=== PATIENT | male | born 1960 | race Caucasian/White ===

== ENCOUNTER 2018-03-27 19:39 | Outpatient (CLI) | payer MEDICARE | END 2018-03-27 19:40 | disposition critical access hospital (66) | LOC: EMS 19:39 | PROVIDERS: ATTEND Surgery | DX: S01.01XA Laceration without foreign body of scalp, initial encounter (principal); Z72.89 Other problems related to lifestyle; W01.0XXA Fall on same level from slipping, tripping and stumbling without subsequent striking against object, initial encounter; Y93.01 Activity, walking, marching and hiking; Y92.413 State road as the place of occurrence of the external cause | CPT/HCPCS: A0425; A0429 ==

== ENCOUNTER 2018-03-27 19:58 | Emergency (ER) | payer MEDICARE ==
--- NOTE | 2018-03-27 21:50 | CT Report ---
EXAM: CT HEAD EXAM DATE: 03/27/2018 09:15 PM. CLINICAL HISTORY: Fall, etoh, facial trauma. COMPARISON: 08/26/2010. TECHNIQUE: Multiaxial CT images were obtained from the foramen magnum to the vertex. Reformats: Coron al. IV contrast: None. In accordance with CT protocol optimization, one or more of the following dose reduction techniques w ere utilized for this exam: automated exposure control, adjustment of mA and/or KV based on patient s ize, or use of iterative reconstructive technique. FINDINGS: Parenchyma: No intraparenchymal hemorrhage. No evidence of mass, midline shift, or CT findings of inf arction. Old right lacunar infarction. Chao-white differentiation is distinct. Extraaxial Spaces: Normal for age. No subdural or epidural collections. Ventricles: Mildly prominent lateral ventricles, right more than left. Sinuses and Orbits: Small maxillary sinuses with almost complete opacification of right maxillary sin us. Hypoplastic frontal sinuses. Other sinuses appear clear. Bones: Unremarkable. Other: None. IMPRESSION: 1. Old right lacunar infarction and other chronic findings, but no definite acute intracranial diseas e. 2. Right maxillary sinusitis. [facility] Referring Provider Line: [phone] SITE ID: [id number]
--- NOTE | 2018-03-27 21:50 | CT Preliminary Report ---
Exam: CT HEAD W/O IMPRESSION: 1. Old right lacunar infarction and other chronic findings, but no definite acute intracranial diseas e. 2. Right maxillary sinusitis. [facility] SITE ID: [id number]
--- NOTE | 2018-03-27 21:54 | CT Preliminary Report ---
Exam: CT FACIAL BONES W/O IMPRESSION: 1. No acute facial fracture. 2. Right maxillary sinus inflammatory disease. 3. Soft tissue swelling of the chin. [facility] SITE ID: [id number]
--- NOTE | 2018-03-27 21:54 | CT Report ---
EXAM: CT MAXILLOFACIAL WITHOUT CONTRAST EXAM DATE: 03/27/2018 09:41 PM. CLINICAL HISTORY: Fall, etoh, facial trauma. COMPARISONS: Head CT 08/26/2010. TECHNIQUE: Thin-section axial images were acquired of the face without contrast. Post-processing: Cor onal and sagittal reformats. Other: None. In accordance with CT protocol optimization, one or more of the following dose reduction techniques w ere utilized for this exam: automated exposure control, adjustment of mA and/or KV based on patient s ize, or use of iterative reconstructive technique. FINDINGS: Soft Tissue: No facial hematoma or subcutaneous fluid collection. There is soft tissue edema or contu vanesa of the subcutaneous tissue of the chin. Orbits: Both orbits appear symmetric. No posterior orbital hematoma or mass. Bones: No acute facial fracture is identified. Temporomandibular Joints: Temporal mandibular joints appear in satisfactory alignment. No mandible or maxillary fracture. Sinuses: There is near complete opacification of the right maxillary sinus. There is mucosal thickeni ng at the infundibulum with obstruction of the ostiomeatal complex. The frontal sinuses are hypoplast ic. The other paranasal sinuses appear clear. Other: None. IMPRESSION: 1. No acute facial fracture. 2. Right maxillary sinus inflammatory disease. 3. Soft tissue swelling of the chin. [facility] Referring Provider Line: [phone] SITE ID: [id number]
--- NOTE | 2018-03-27 22:00 | CT Report ---
EXAM: CT CERVICAL SPINE WITHOUT CONTRAST DATE: 03/27/2018 09:41 PM. HISTORY: Fall, etoh, facial trauma. COMPARISONS: None. TECHNIQUE: Thin-section axial images were acquired of the cervical spine without contrast. Post-proce ssing: Coronal and sagittal reformats. Other: None. In accordance with CT protocol optimization, one or more of the following dose reduction techniques w ere utilized for this exam: automated exposure control, adjustment of mA and/or KV based on patient s ize, or use of iterative reconstructive technique. FINDINGS: Alignment: There is straightening of normal cervical lordosis. There is 1-2 mm of anterolisthesis at C2-C3. Alignment at other levels appears satisfactory. Bones: Negative for fracture. No destructive bony abnormality. Interspace Levels/Facets: There is mild to moderate disk height loss with disk endplate degenerative disease and spurring which is greatest at C6-C7. There is multilevel facet joint space narrowing and spurring. There is mild de generative disk disease at levels from C3-C6. No focal central spinal canal stenosis. Musculature: Normal. No fatty atrophy. Other: Paravertebral soft tissues are unremarkable. No apical pneumothorax. IMPRESSION: 1. Rgql-[id number] multilevel degenerative disk and facet disease. Negative for an acute fracture or subluxation of the cervical spine. [facility] Referring Provider Line: [phone] SITE ID: [id number]
--- NOTE | 2018-03-27 22:00 | CT Preliminary Report ---
Exam: CT CERVICAL SPINE W/O IMPRESSION: 1. [id number]-[id number] multilevel degenerative disk and facet disease. Negative for an acute fracture or subluxation of the cervical spine. [facility] SITE ID: [id number]
--- NOTE | 2018-03-27 22:04 | ED Physician Documentation ---
PD HPI HEAD INJURY - Stated complaint Stated Complaint: ETOH,FELL, CHIN LAC - Chief complaint Chief Complaint: Laceration - History obtained from History obtained from: Patient, EMS - History of Present Illness Mechanism of head injury: Fell Where head injury occurred: Street Timing - onset: Today Associated symptoms: LOC Contributing factors: Intoxicated Similar symptoms before: Has not had sx before Recently seen: Not recently seen - Additional information Additional information: Patient is a 57 year male who is presenting to the emergency department after falling secondary to intoxication. patient admitting to drinking an unknown number of [place] drinks causing him to black out and fall forward cutting his chin. Review of Systems Unable to obtain: Intoxicated PD PAST MEDICAL HISTORY - Past Medical History Cardiovascular: None Respiratory: None Neuro: None Endocrine/Autoimmune: None GI: None : None HEENT: None Psych: None Musculoskeletal: None Derm: None - Past Surgical History Past Surgical History: Yes - Allergies Allergies/Adverse Reactions: Allergies Allergy/AdvReac Type Severity Reaction Status Date / Time No Known Drug Allergies Allergy Verified 03/27/18 20:07 - Social History Does the pt smoke?: Yes Smoking Status: Current every day smoker Does the pt drink ETOH?: Yes ETOH Use: Wine, Liquor Does the pt have substance abuse?: Yes Substance Use and Type: Marijuana - Immunizations Immunizations are current?: No Immunizations: TDAP >10years/unknown - POLST Patient has POLST: No PD ED PE NORMAL - Vitals Vital signs reviewed: Yes - Neck Neck: No bony TTP - Cardiac Cardiac: RRR - Respiratory Respiratory: No respiratory distress - Abdomen Abdomen: Non distended PD ED PE EXPANDED - HEENT HEENT: Head injury (2cm laceration of chin) - Derm Derm: Other (psoriasis bilateral upper extremities) - GCS Eye Opening: To Voice Motor: Obeys Commands Verbal: Oriented Total: 14 - Psych Psych: Intoxicated / AOB Results - Vitals Vitals: Vital Signs - 24 hr 03/27/18 03/27/18 20:00 22:24 Temperature 36.6 C Heart Rate 79 96 Respiratory 19 19 Rate Blood Pressure 103/77 112/81 H O2 Saturation 100 100 Oxygen O2 Source Room air - Rads (name of study) ct head, cervical spine, facial bones Radiology: Final report received (no acute fracture, dislocation or intracranial hemorrhage ), See rad report Procedures - Laceration (location) chin Length in cm: 2 Wound type: Irregular Neurovascular status: Sensory intact, Vascular intact Wound Preparation: Chlorhexadine, Irrigated copiously NS Skin layer closure: Dermabond Other: No complications, Tetanus UTD Complexity: Simple PD MEDICAL DECISION MAKING - ED course Complexity details: reviewed old records, reviewed results, re-evaluated patient , considered differential, d/w patient ED course: patient was seen and examined at bedside. patient was sent for imaging. When patient returned his laceration was cleaned and repaired. Patient's imaging showed no acute abnormalities. patient was observed for sobriety. Upon discharge patient was able to attend to conversation and ambulate without difficulty. patient required no further inpatient work up and was stable for discharge with outpatient follow up. Departure - Departure Disposition: 01 Home, Self Care Clinical Impression: Laceration, Alcohol intoxication Condition: Good Instructions: ED Laceration Facial Skin Glue Follow-Up: primary,care provider [Other] - As Needed Comments: Your diagnostics today were within normal limits. there were no acute findings. You did suffer a laceration on the bottom of your chin that was repaired with glue. You should keep the area clean and dry. You should refrain from drinking excessively as it contributed to your fall. Discharge Date/Time: 03/27/18 22:30
[2018-03-27 22:29] VITALS: BP 112/81
== END 2018-03-27 22:30 | disposition home or self-care (01) ==
LOC: EDUNIT# → ED 19:58
DX: S01.81XA Laceration without foreign body of other part of head, initial encounter (principal); W18.30XA Fall on same level, unspecified, initial encounter; Y92.410 Unspecified street and highway as the place of occurrence of the external cause; F17.200 Nicotine dependence, unspecified, uncomplicated
CPT/HCPCS: 12011; 70450; 70486; 72125; 99283

== ENCOUNTER 2019-12-10 10:16 | Outpatient (CLI) | payer MEDICARE ==
--- NOTE | 2019-12-10 17:06 | XRAY Report ---
Reason: RIGHT SHOULDER PAIN Procedure Date: 12/10/2019 Accession Number: [id number] / [id number] Procedure: WCP - Shoulder 2 View RT CPT Code: Final Report FULL RESULT: EXAM: RIGHT SHOULDER RADIOGRAPHY EXAM DATE: 12/10/2019 12:16 PM. CLINICAL HISTORY: Right shoulder pain, post trauma. COMPARISON: None. TECHNIQUE: 3 views. FINDINGS: Bones: No fracture or bone lesion. Joints: Minimal early degenerative changes at the glenohumeral and acromioclavicular joints. Soft tissues: The visualized hemithorax is unremarkable. No soft tissue swelling. No pneumothorax in the right lung apex. IMPRESSION: No acute process. Minimal degenerative change. [facility]
== END 2019-12-10 23:59 | disposition home or self-care (01) ==
LOC: DI.WCP 10:16
PROVIDERS: ATTEND Family Medicine
DX: M19.011 Primary osteoarthritis, right shoulder (principal)

== ENCOUNTER 2020-06-24 08:00 | Outpatient (CLI) | payer MEDICARE ==
[2020-06-24 11:33] LABS: BASOPHILS % (AUTO) 0.5 %; HGB - HEMOGLOBIN 15.3 g/dL (14.0-18.0); LYMPHOCYTES % (AUTO) 20.4 %; MEAN CORPUSCULAR HGB CONC 33.8 g/dL (32.0-36.0); MEAN CORPUSCULAR VOLUME 109.7 fL (80.0-94.0); MEAN PLATELET VOLUME 11.6 fL (7.4-11.4); MONOCYTES % (AUTO) 6.6 %; NEUTROPHILS % (AUTO) 37.3 %; PLT - PLATELET COUNT 142 10^3/uL (130-450); RED BLOOD COUNT 4.13 10^6/uL (4.70-6.10); RED CELL DISTRIBUTION WIDTH 14.1 % (12.0-15.0); WHITE BLOOD COUNT 6.3 x10^3/uL (4.8-10.8)
[2020-06-24 12:11] LABS: ABNORMAL LYMPHS % (MANUAL) 0 %; BAND NEUTROPHILS % (MANUAL) 0 %
[2020-06-24 12:24] LABS: ALBUMIN 3.8 g/dL (3.2-5.5); ALBUMIN/GLOBULIN RATIO 1.1 (1.0-2.2); ALKALINE PHOSPHATASE 69 IU/L (42-121); ALT ALANINE AMINOTRANSFERASE 34 IU/L (10-60); AST ASPARTATE AMINOTRANSFERASE 37 IU/L (10-42); BILIRUBIN,TOTAL 0.8 mg/dL (0.2-1.0); BUN - BLOOD UREA NITROGEN 22 mg/dL (6-20); CARBON DIOXIDE - CO2 28 mmol/L (21-32); CHLORIDE 105 mmol/L (101-111); CHOL/HDL RATIO 2.3 (<5.0); CHOLESTEROL 227 mg/dL; GLUCOSE 82 mg/dL (70-100); HDL CHOLESTEROL 99 mg/dL; LDL CHOLESTEROL,CALCULATED 98 mg/dL; SODIUM 140 mmol/L (135-145); TOTAL PROTEIN 7.4 g/dL (6.7-8.2); VLDL CHOLESTEROL 30 mg/dL
[2020-06-24 13:00] LABS: DIFFERENTIAL COMMENT MANUAL DIFFERENTIAL; EOSINOPHILS # (MANUAL) 1.6 10^3/uL (0-0.7); LYMPHOCYTES % (MANUAL) 16 %; MONOCYTES # (MANUAL) 0.3 10^3/uL (0.0-1.0); PLATELET ESTIMATE, MANUAL NORMAL (130-450,000) (NORMAL); PLATELET MORPHOLOGY NORMAL APPEARANCE (NORMAL); RBC MORPHOLOGY (MULTIPLE) 2+ MACROCYTOSIS (NORMAL)
== END 2020-06-24 23:59 | disposition home or self-care (01) ==
LOC: LAB.WCP 08:00
PROVIDERS: ATTEND Nurse Practitioner Family
DX: E78.5 Hyperlipidemia, unspecified (principal); F10.10 Alcohol abuse, uncomplicated; J45.998 Other asthma
CPT/HCPCS: 36415; 80053; 80061; 83721; 85025

== ENCOUNTER 2020-10-24 08:00 | Outpatient (CLI) | payer MEDICARE ==
[2020-10-24 11:37] LABS: BASOPHILS # (AUTO) 0.1 10^3/uL (0.0-0.1); BASOPHILS % (AUTO) 0.9 %; EOSINOPHILS # (AUTO) 1.4 10^3/uL (0.0-0.7); EOSINOPHILS % (AUTO) 19.1 %; HGB - HEMOGLOBIN 14.6 g/dL (14.0-18.0); LYMPHOCYTES # (AUTO) 1.6 10^3/uL (1.5-3.5); LYMPHOCYTES % (AUTO) 21.7 %; MEAN CORPUSCULAR HEMOGLOBIN 36.1 pg (27.0-31.0); MEAN CORPUSCULAR HGB CONC 32.8 g/dL (32.0-36.0); MEAN CORPUSCULAR VOLUME 110.1 fL (80.0-94.0); MEAN PLATELET VOLUME 11.3 fL (7.4-11.4); MONOCYTES # (AUTO) 0.5 10^3/uL (0.0-1.0); MONOCYTES % (AUTO) 6.1 %; NEUTROPHILS # (AUTO) 3.8 10^3/uL (1.5-6.6); NEUTROPHILS % (AUTO) 51.9 %; PLT - PLATELET COUNT 195 10^3/uL (130-450); RED BLOOD COUNT 4.04 10^6/uL (4.70-6.10); RED CELL DISTRIBUTION WIDTH 13.6 % (12.0-15.0); WHITE BLOOD COUNT 7.4 x10^3/uL (4.8-10.8)
[2020-10-24 12:23] LABS: ALBUMIN 3.8 g/dL (3.2-5.5); ALBUMIN/GLOBULIN RATIO 1.2 (1.0-2.2); ALKALINE PHOSPHATASE 69 IU/L (42-121); ALT ALANINE AMINOTRANSFERASE 30 IU/L (10-60); AST ASPARTATE AMINOTRANSFERASE 33 IU/L (10-42); BILIRUBIN,TOTAL 0.4 mg/dL (0.2-1.0); BUN - BLOOD UREA NITROGEN 19 mg/dL (6-20); CALCIUM 8.9 mg/dL (8.5-10.3); CARBON DIOXIDE - CO2 30 mmol/L (21-32); CHLORIDE 102 mmol/L (101-111); CHOL/HDL RATIO 2.5 (<5.0); CHOLESTEROL 219 mg/dL; CREATININE 0.8 mg/dL (0.6-1.2); GLUCOSE 105 mg/dL (70-100); HDL CHOLESTEROL 88 mg/dL; LDL CHOLESTEROL,CALCULATED 103 mg/dL; LDL/HDL RATIO 1.2 (<3.6); SODIUM 139 mmol/L (135-145); TOTAL PROTEIN 7.1 g/dL (6.7-8.2); VLDL CHOLESTEROL 28 mg/dL
[2020-10-24 12:36] LABS: FOLATE 1.65 ng/mL (5.90 - >24.8)
== END 2020-10-24 23:59 | disposition home or self-care (01) ==
LOC: LAB.WCP 08:00
PROVIDERS: ATTEND Nurse Practitioner Family
DX: E78.5 Hyperlipidemia, unspecified (principal); Z12.5 Encounter for screening for malignant neoplasm of prostate; R53.1 Weakness; F10.10 Alcohol abuse, uncomplicated; D53.9 Nutritional anemia, unspecified
CPT/HCPCS: 36415; 80053; 80061; 82607; 82746; 84443; 85025; G0103; 82306; 83721; 84153

== ENCOUNTER 2022-02-05 09:37 | Outpatient (CLI) | payer MEDICARE ==
--- NOTE | 2022-02-05 20:56 | Ultrasound Report ---
PROCEDURE: Abdomen Limited INDICATIONS: ALCOHOL ABUSE TECHNIQUE: Real-time scanning was performed of the abdominal and retroperitoneal organs, with image documentatio n. COMPARISON: None. FINDINGS: Liver: Liver is normal in size and homogeneous in echotexture. Gallbladder: L bladder is unremarkable. Wall thickness is within normal limits measuring 1 mm. Biliary ducts: Intrahepatic bile ducts are non-dilated. Extrahepatic bile duct caliber measures 3.7 mm. Normal is 6-7 mm or less in diameter, or 10 mm or less post-cholecystectomy. Kidneys: Right kidney measures 10.9 cm long. No hydronephrosis or nephrolithiasis. No solid masses . IMPRESSION: Unremarkable exam. No hepatic nodularity. Reviewed by: Manasa Alves MD on 02/05/2022 8:55 PM PST Approved by: Manasa Alves MD on 02/05/2022 8:55 PM PST Station ID: [id number]
== END 2022-02-05 09:38 | disposition home or self-care (01) ==
LOC: DI 09:37
PROVIDERS: ATTEND Family Medicine
DX: F10.10 Alcohol abuse, uncomplicated (principal)

== ENCOUNTER 2022-04-20 08:00 | Outpatient (CLI) | payer MEDICARE ==
[2022-04-20 12:25] LABS: BASOPHILS % (AUTO) 0.9 %; HCT - HEMATOCRIT 45.4 % (42.0-52.0); HGB - HEMOGLOBIN 15.2 g/dL (14.0-18.0); LYMPHOCYTES % (AUTO) 16.8 %; MEAN CORPUSCULAR HEMOGLOBIN 34.9 pg (27.0-31.0); MEAN CORPUSCULAR HGB CONC 33.5 g/dL (32.0-36.0); MEAN CORPUSCULAR VOLUME 104.1 fL (80.0-94.0); MEAN PLATELET VOLUME 11.5 fL (7.4-11.4); MONOCYTES % (AUTO) 8.3 %; NEUTROPHILS % (AUTO) 58.9 %; PLT - PLATELET COUNT 186 10^3/uL (130-450); RED BLOOD COUNT 4.36 10^6/uL (4.70-6.10); RED CELL DISTRIBUTION WIDTH 13.7 % (12.0-15.0)
[2022-04-20 12:35] LABS: SLIDE REVIEW? Indicated
[2022-04-20 12:36] LABS: ABNORMAL LYMPHS % (MANUAL) 0 %
[2022-04-20 13:05] LABS: ALBUMIN 4.2 g/dL (3.2-5.5); ALBUMIN/GLOBULIN RATIO 1.3 (1.0-2.2); BILIRUBIN,TOTAL 1.2 mg/dL (0.2-1.0); CALCIUM 9.8 mg/dL (8.5-10.3); CREATININE 0.8 mg/dL (0.6-1.2); POTASSIUM 3.6 mmol/L (3.5-5.0); TOTAL PROTEIN 7.5 g/dL (6.7-8.2)
[2022-04-20 13:08] LABS: BAND NEUTROPHILS % (MANUAL) 8 %; EOSINOPHILS # (MANUAL) 1.3 10^3/uL (0-0.7); LYMPHOCYTES % (MANUAL) 14 %; NEUTROPHILS # (MANUAL) 4.7 10^3/uL (1.5-6.6)
[2022-04-20 13:09] LABS: DIFFERENTIAL COMMENT MANUAL DIFFERENTIAL; PLATELET ESTIMATE, MANUAL NORMAL (130-450,000) (NORMAL); PLATELET MORPHOLOGY NORMAL APPEARANCE (NORMAL); RBC MORPHOLOGY (MULTIPLE) NORMAL APPEARANCE (NORMAL)
== END 2022-04-20 23:59 | disposition home or self-care (01) ==
LOC: LAB.N 08:00
PROVIDERS: ATTEND Physician Assistant
DX: K92.1 Melena (principal)
CPT/HCPCS: 36415; 80053; 83690; 85025

== ENCOUNTER 2022-10-31 07:25 | Outpatient (CLI) | payer MEDICARE | END 2022-10-31 13:23 | disposition home or self-care (01) | LOC: LAB 07:25 | PROVIDERS: ATTEND Physician Assistant | DX: R19.7 Diarrhea, unspecified (principal) | CPT/HCPCS: 87045; 87046; 87329; 87427; 87493 ==

== ENCOUNTER 2022-11-14 08:24 | Outpatient (CLI) | payer MEDICARE | END 2022-11-14 08:25 | disposition home or self-care (01) | LOC: LAB 08:24 | PROVIDERS: ATTEND Surgery | DX: Z01.812 Encounter for preprocedural laboratory examination (principal); R19.7 Diarrhea, unspecified; K90.49 Malabsorption due to intolerance, not elsewhere classified; Z28.310 Unvaccinated for COVID-19; Z20.822 Contact with and (suspected) exposure to COVID-19 ==